=== PATIENT | male | born 1955 | race Caucasian/White ===

== ENCOUNTER 2022-01-19 07:27 | Day surgery (SDC) | payer OTHER ==
[~2022-01-19 07:27] MED LIST: ALLO300 PO; ASPI81CH PO; Flomax0.4 MG PO; IBUP200 PO; LOSA25 PO; MIRALAX17 GM PO; MULVITA PO; VITAMIN B125000 MC1 PO; fish oil PO
== END 2022-01-19 23:13 | disposition home or self-care (01) ==
DX: K40.90 Unilateral inguinal hernia, without obstruction or gangrene, not specified as recurrent (principal); I10 Essential (primary) hypertension; G47.33 Obstructive sleep apnea (adult) (pediatric); Z87.891 Personal history of nicotine dependence; Z79.899 Other long term (current) drug therapy; Z79.82 Long term (current) use of aspirin

== ENCOUNTER 2024-11-14 17:08 | Emergency (ER) | payer OTHER ==
[~2024-11-14] VITALS: Ht 170.2 cm; Wt 84.4 kg
[2024-11-14 20:38] VITALS: BP 148/98
== END 2024-11-14 20:42 | disposition home or self-care (01) ==
LOC: ER 17:08
DX: S82.61XA Displaced fracture of lateral malleolus of right fibula, initial encounter for closed fracture (principal); S80.812A Abrasion, left lower leg, initial encounter; Z88.0 Allergy status to penicillin; Z79.82 Long term (current) use of aspirin; Z79.899 Other long term (current) drug therapy; W14.XXXA Fall from tree, initial encounter
CPT/HCPCS: 29515; 73610; 99283-25